=== PATIENT | female | born 1995 ===

== ENCOUNTER → 2021-08-27 09:48 | Outpatient (ROUT) | payer SELFPAY ==
[2021-08-27 13:22] LABS: Influenza A - CEPHEID Flu A NEGATIVE (NEGATIVE); Influenza B - CEPHEID Flu B NEGATIVE (NEGATIVE)
== END ==
PROVIDERS: Visit Provider Nurse Practitioner Family
DX: J02.9 Acute pharyngitis, unspecified (principal); R09.81 Nasal congestion
CPT/HCPCS: 87502